=== PATIENT | male | born 1975 | race Caucasian/White ===

== ENCOUNTER 2017-05-12 12:08 | Emergency (ER) | payer SELFPAY ==
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
== END 2017-05-12 14:10 | disposition home or self-care (01) ==
LOC: JD.ED 12:08
DX: L03.116 Cellulitis of left lower limb (principal); B35.3 Tinea pedis; F17.210 Nicotine dependence, cigarettes, uncomplicated
CPT/HCPCS: 99283